=== PATIENT | male | born 1960 | race Caucasian/White ===

== ENCOUNTER 2018-05-14 07:01 | Outpatient (CLI) | payer OTHER ==
[~2018-05-14] VITALS: Ht 167.6 cm; Wt 74.4 kg
[2018-05-14] VITALS (14 sets, daily range): BP systolic 96–134; BP diastolic 64–87
[2018-05-14] MEDS ORDERED: POLY255P11 PO (07:25)
[2018-05-14] MEDS ORDERED: TRAM50TA PO (07:25)
[2018-05-14] MEDS ORDERED: XOPENEX HFA15 GM IH (07:25)
[2018-05-14] MEDS ORDERED: IBUP-1027 PO (07:25)
[2018-05-14] MEDS ORDERED: RANI150T2 PO (07:25)
[2018-05-14] MEDS ORDERED: SENN1TAB62 PO (07:25)
[2018-05-14] MEDS ORDERED: MAGN400O7 PO (07:25)
[2018-05-14] MEDS ORDERED: CICL6.1H3 IH (07:25)
[2018-05-14] MEDS ORDERED: ACET325T9 PO (07:25)
[2018-05-14 08:03] LABS: BASO # 0.1 x10^3/uL (0.0-0.2); BASO % 1 % (0-3); EOS # 0.3 x10^3/uL (0.0-0.7); EOS % 5 % (0-3); HEMATOCRIT 43.8 % (39.0-53.0); LYMPH # 1.5 x10^3/uL (1.0-4.8); LYMPH % 27 % (24-48); MEAN CORPUSCULAR HEMOGLOBIN 33 pg (25-35); MEAN CORPUSCULAR HGB CONC 34 g/dL (31-37); MEAN CORPUSCULAR VOLUME 96 fL (79-100); MONO # 0.7 x10^3/uL (0.0-1.1); MONO % 13 % (0-9); NEUT % 54 % (31-73); PLATELET COUNT 242 x10^3/uL (140-400); RED BLOOD COUNT 4.58 x10^6/uL (4.30-5.70); RED CELL DISTRIBUTION WIDTH 12.7 % (11.5-14.5); WHITE BLOOD COUNT 5.6 x10^3/uL (4.0-11.0)
[2018-05-14] MEDS ORDERED: MIDAZOLAM HCL/PF 5 MG/5 ML VIAL. ONE (08:10)
[2018-05-14] MEDS ORDERED: fentaNYL PF VIAL 100 MCG/2 ML VIAL ONE (08:10)
[2018-05-14 08:18] LABS: PROTHROMBIN TIME PATIENT 12.9 SEC (11.7-14.0)
[2018-05-14] MEDS ORDERED: LIDOCAINE 1%/EPI 1:100,000 20 ML VIAL. ONE (08:19)
[2018-05-14] MEDS ORDERED: fentaNYL PF VIAL 100 MCG/2 ML VIAL IV ONE (08:45)
[2018-05-14] MEDS ORDERED: LIDOCAINE 1%/EPI 1:100,000 20 ML VIAL. IJ ONE (08:45)
[2018-05-14] MEDS ORDERED: MIDAZOLAM HCL/PF 5 MG/5 ML VIAL. IV ONE (08:45)
--- NOTE | 2018-05-14 09:17 | PDOC ---
MODERATE SEDATION ASSESSMENT RISKS/ALTERNATIVES Risks/Alternatives Risks and alternatives of this type of sedation and procedure discussed with: RISK/ALTERNATIVES: Patient H & P ON CHART H & P H & P on chart and reviewed for co-morbid conditions and appropriate labs. H&P ON CHART: Yes STATUS PREG STATUS ASSESSED: Yes MEDS/ALLERGIES REVIEWED Meds/Allergies Reviewed Medications and Allergies including time and route of recently administered narcotics and sedatives. MEDS/ALLERGIES REVIEWED: Yes ASA RATING ASA RATING: II AIRWAY ASSESSMENT Airway Assessment Airway patency, oral function limitations, presence of caps, crowns, dentures, partials, and ability to extend neck assessed. AIRWAY ASSESSMENT: Yes MALLAMPATI SCORE MALLAMPATI SCORE: II PRE-SEDATION ASSESSMENT PRE-SEDATION ASSESSMENT: Yes SARWAT HALL MD May 14, 2018 09:17
--- NOTE | 2018-05-14 09:24 | RAD ---
Procedure: Ultrasound and fluoroscopically guided placement of right internal jugular power port.. 05/14/2018 9:20 AM Clinical Indication: LUNG CA Sedation: Conscious sedation was administered for 30 minutes. The patient was monitored by a qualified independent observer throughout the time of sedation. Please refer to the medical record for exact doses of medications utilized to achieve moderate sedation. Fluoroscopy time: 0.3 minutes Dose area product: 1 Gycm2 Consent: The procedure was explained in its entirety to the patient or the patients designated sales representative supervisor by a member of the treatment team, including a discussion of the risks, benefits and commonly accepted alternatives to the procedure, as well as the expected consequences of no therapy whatsoever. Discussion of the risks included, but was not limited to, those that are most frequent and those that are rare but possibly severe or life-threatening, as well as the possibility of unforeseen complications. Technique and Findings: All elements of maximal sterile barrier technique including the use of a cap, mask, sterile gown, sterile gloves, large sterile sheet, appropriate hand hygiene, and 2% chlorhexidine for cutaneous antisepsis (or acceptable alternative antiseptic per current guidelines) were followed for this procedure. Following informed consent, and a timeout procedure, the patient was prepped and draped in the usual sterile fashion. Ultrasound interrogation of the right neck revealed patency and compressibility of the right internal jugular vein. A 21-gauge micropuncture was then used to gain access to this vein under ultrasound guidance. A hard copy ultrasound image was recorded. The needle was exchanged over a wire for a sheath. A 1 inch incision was made several centimeters inferior to the venotomy site. A catheter was tunneled from this site dermatotomy site in the neck. Catheter was advanced through peel-away sheath such that its tip was in the proximal right atrium with the patient supine. The catheter was trimmed to length and connected to the port reservoir. The port was found to flush and aspirate normally. The wound was closed in layers using 4-0 Vicryl suture. Sterile dressings were applied. Impression: Successful ultrasound and fluoroscopically guided placement of a right internal jugular PowerPort
--- NOTE | 2018-05-14 10:40 | EKG ---
[facility] [address] [place] [address] Test Date: 2018-05-14 Test Time: 10:25:01 Pat Name: KASI CHEN Department: Room: Gender: M Technical Inspector: AT : 1960 Requested By: SARWAT HALL Order Number: [id number] Reading MD: Tien Cheatham MD Measurements Intervals [place] Rate: 106 P: 43 WI: 134 QRS: -36 QRSD: 94 T: 23 QT: 340 QTc: 453 Interpretive Statements SINUS TACHYCARDIA NON-SPECIFIC ST/T CHANGES Electronically Signed On 05-14-2018 15:07:23 CDT by Tien Cheatham MD
--- NOTE | 2018-05-14 12:00 | NUR ---
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 All questions have been answered and understanding verbalized. The following instructions and handouts were given: Moderate sedation and port a cath placement, signs and symptoms of infection. Discontinued lines and drains: right AC PIV, dressing clean dry intact. Patient discharged to back to senior care with guards via wheelchair in private vehichle. Patient ate food and drank without any issues or concerns, patient received normal saline 250ml bolus before departure for increased heart rate and low blood pressure. Patient tolerated well with no issues, vitals stable.
== END 2018-05-14 12:00 ==
LOC: INTRAD 07:01
PROVIDERS: ATTEND Internal Medicine Hematology & Oncology
DX: C34.12 Malignant neoplasm of upper lobe, left bronchus or lung (principal); Z79.01 Long term (current) use of anticoagulants; Z87.891 Personal history of nicotine dependence; Z79.899 Other long term (current) drug therapy
CPT/HCPCS: 36415; 36561; 76937; 77001; 85025; 85610; 85730; 93005; 99152; 99153; C1788; C1892; J0690; J2250; J3010; J3490; C1751